=== PATIENT | female | born 2000 | race Caucasian/White ===

== ENCOUNTER 2020-06-30 12:51 | Emergency (ER) | payer OTHER ==
[2020-06-30 13:05] VITALS: BP 126/90; PULSE 76; TEMP 99.4; BMI 23.0
[2020-06-30] MEDS ORDERED: IBUPROFEN 600 MG TABLET (FP) PO ONE ×2 (13:36→13:39)
[2020-06-30 14:13] LABS: EPITHELIAL CELLS MANY /hpf
== END 2020-06-30 14:47 | disposition home or self-care (01) ==
LOC: FER 12:51
DX: R07.89 Other chest pain (principal); R07.81 Pleurodynia
CPT/HCPCS: 81003; 81015; 84703; 99284-25

== ENCOUNTER 2020-07-02 13:15 | Emergency (ER) | payer OTHER ==
[2020-07-02 13:29] VITALS: BMI 23.0
[2020-07-02 14:48] LABS: BASO % 0.8 % (0-2.0); EOS % 2.3 % (0-4.5); HEMATOCRIT 37.6 % (32.4-45.2); HEMOGLOBIN 12.8 GM/dL (10.7-15.3); LYMPH % 28.3 % (8-40); MCH 30.7 pg (25.7-33.7); MEAN CELL VOLUME 90.2 fl (80-96); MEAN PLT VOLUME 9.8 fl (7.5-11.1); NEUT % 61.6 % (42.8-82.8); PLATELET COUNT 231 K/MM3 (134-434); RBC 4.17 M/mm3 (3.60-5.2)
[2020-07-02 15:19] LABS: CALCIUM 9.5 mg/dL (8.5-10.1)
[2020-07-02 15:20] LABS: ALBUMIN 4.3 g/dl (3.4-5.0)
[2020-07-02 15:23] LABS: CREATININE 0.8 mg/dL (0.55-1.3)
[2020-07-02 15:24] LABS: BILIRUBIN,TOTAL 0.4 mg/dL (0.2-1); TOT PROT 7.6 g/dl (6.4-8.2)
[2020-07-02] MEDS ORDERED: IBUPROFEN 600 MG TABLET (FP) PO ONE ×2 (16:37→16:52)
[2020-07-02 16:59] VITALS: BP 122/74; PULSE 78; TEMP 98
== END 2020-07-02 16:57 | disposition home or self-care (01) ==
LOC: JER 13:15
DX: R10.9 Unspecified abdominal pain (principal)
CPT/HCPCS: 36415; 74177-TC; 80053; 83690; 85025; 87086; 87491; 87591; 99285-25